=== PATIENT | male | born 1975 | race American Indian/Alaskan Native ===

== ENCOUNTER 2017-11-01 09:53 | Emergency (ER) | payer OTHER ==
[2017-11-01 10:08] VITALS: BP 121/77
[2017-11-01] MEDS ORDERED: BOOSTRIX IM ONE (10:33)
[2017-11-01] MEDS ORDERED: XYLOCAINE 1% MPF 5 mL INFILTRATI ONE (10:33)
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
== END 2017-11-01 12:03 | disposition home or self-care (01) ==
LOC: ED 09:53
DX: S61.011A Laceration without foreign body of right thumb without damage to nail, initial encounter (principal); F17.200 Nicotine dependence, unspecified, uncomplicated; W26.0XXA Contact with knife, initial encounter; Y93.89 Activity, other specified; Y92.89 Other specified places as the place of occurrence of the external cause; Y99.8 Other external cause status
CPT/HCPCS: 90471; 90715; 99281